=== PATIENT | female | born 1950 | race Caucasian/White ===

== ENCOUNTER → 2016-12-16 | Outpatient (CLI) | payer MEDICARE, OTHER ==
[~2016-12-16] MED LIST: BIOT10TA PO; LOSA50TA52 PO; MECL-103 PO; MULT-1235 PO; OXYB5TAB10 PO; PROC25SU32 RC; TORS20TA4 PO; VENL-68 PO
== END ==
LOC: LAB 15:07
PROVIDERS: ATTEND Family Medicine
DX: J40 Bronchitis, not specified as acute or chronic (principal); R05 Cough
CPT/HCPCS: 87486; 87581; 87633; 87798